=== PATIENT | male | born 1965 | race Caucasian/White ===

== ENCOUNTER 2018-02-16 21:21 | Emergency (ER) | payer MEDICARE ==
[2018-02-16 21:31] VITALS: RESP 18
[2018-02-16] MEDS ORDERED: LIDOCAINE 1% (PF) 10MG/ML VIAL SQ STA (23:06)
[2018-02-16] MEDS ORDERED: LIDOCAINE 1% INJ 10MG/ML (20 ML MDV) SQ STA (23:07)
--- NOTE | 2018-02-16 23:14 | ED ---
Skin/Abscess/FB HPI - General Chief complaint: Skin/Abscess/Foreign Body Stated complaint: Fish Hook in finger Time Seen by Provider: 02/16/18 22:42 Source: patient Mode of arrival: ambulatory Limitations: no limitations - History of Present Illness Initial comments: 's patient is 52-year-old man who presents to have a fishhook removed from his finger. Patient states that he was reaching in his tackle box couple of hours ago and had a fishhook penetrate his skin and then he was not able to take it out because the bentley. He does state that his last tetanus shot was approximately year ago. He denies any other complaints. MD complaint: foreign body Onset/Timin -: hour(s) Tetanus Up to Date: yes Location: R hand Severity: mild Quality: sharp Consistency: constant Improves with: none Worsens with: movement Context: none - Related Data Home Medications Medication Instructions Recorded Confirmed Amitriptyline HCl [Elavil] 30 mg PO HS 02/16/18 02/16/18 Gabapentin [Neurontin] 200 mg PO BID 02/16/18 02/16/18 [place]-3 Fatty Acids [[place]-3] 1,000 mg PO DAILY 02/16/18 02/16/18 Pantoprazole Sodium [Protonix] 40 mg PO DAILY 02/16/18 02/16/18 QUEtiapine FUMARATE [SEROquel XR] 100 mg PO HS 02/16/18 02/16/18 Allergies Allergy/AdvReac Type Severity Reaction Status Date / Time No Known Allergies Allergy Verified 02/16/18 22:52 Review of Systems ROS Statement: Those systems with pertinent positive or pertinent negative responses have been documented in the HPI. ROS Other: All systems not noted in ROS Statement are negative. Constitutional: Denies: fever Skin: Reports: as per HPI Neurological: Denies: weakness, numbness Hematological/Lymphatic: Denies: easy bleeding Past Medical History Past Medical History: No Reported History History of Any Multi-Drug Resistant Organisms: None Reported Past Surgical History: No Surgical Hx Reported Past Psychological History: No Psychological Hx Reported Smoking Status: Current every day smoker Past Alcohol Use History: Occasional Past Drug Use History: Marijuana General Exam Limitations: no limitations General appearance: alert Extremities exam: Present: other (Patient has a fishhook adjacent to the nail of the digit.) Neurological exam: Absent: motor sensory deficit Skin exam: Present: warm, dry, intact, normal color. Absent: rash Course Vital Signs 02/16/18 02/16/18 21:28 23:26 Temperature 98.4 F 97.9 F Pulse Rate 125 H 95 Respiratory 18 18 Rate Blood Pressure 168/96 149/100 O2 Sat by Pulse 97 97 Oximetry Medical Decision Making - Medical Decision Making I discussed with the patient indications, risks and benefits of foreign body removal and he did verbally agree. I cleansed the skin and infiltrated just under 1 mL of 1% lidocaine without epinephrine. I was unable to grasp the fishhook and back it out of the skin. Patient tolerated this well without complications. Discussed wound care. Discussed return parameters. Disposition Clinical Impression: Fish hook injury of finger Disposition: HOME SELF-CARE Condition: Good Instructions: Soft Tissue Foreign Body (ED) Is patient prescribed a controlled substance at d/c from ED?: No Referrals: Fabian Lyman MD [Primary Care Provider] - 1-2 days
[2018-02-16 23:27] VITALS: BP 149/100; PULSE 95; TEMP 97.9
== END 2018-02-16 23:27 | disposition home or self-care (01) ==
LOC: EC 21:21
DX: S60.551A Superficial foreign body of right hand, initial encounter (principal); F17.200 Nicotine dependence, unspecified, uncomplicated; Z88.8 Allergy status to other drugs, medicaments and biological substances; W45.8XXA Other foreign body or object entering through skin, initial encounter
CPT/HCPCS: 99283; J2001

== ENCOUNTER 2020-02-28 16:16 | Emergency (ER) | payer MEDICARE ==
[2020-02-28 16:22] VITALS: RESP 16
--- NOTE | 2020-02-28 17:32 | XR ---
Right foot HISTORY: Trauma and pain 3 views of the right foot Bone mineralization, joint spaces and alignment are maintained. There is soft tissue swelling present . IMPRESSION: No fracture or dislocation of the right foot.
--- NOTE | 2020-02-28 18:00 | XR ---
Right ankle HISTORY: Trauma and pain 3 views of the right ankle Bone mineralization, joint spaces and alignment are maintained. There is soft tissue swelling present . IMPRESSION: No fracture or dislocation.
--- NOTE | 2020-02-28 18:07 | XR ---
EXAMINATION TYPE: XR Hip RT and AP Pelvis DATE OF EXAM: 02/28/2020 COMPARISON: NONE HISTORY: Trauma and pain TECHNIQUE: A single AP view of the pelvis is obtained. Two views of the right hip are obtained. FINDINGS: There is no acute fracture/dislocation evident in the pelvis. The hip and sacroiliac join ts appear symmetric and unremarkable. The overlying soft tissue appears unremarkable. Two views of right hip show no acute fracture or dislocation. No focal lytic or sclerotic lesion see n in the proximal right femur. The overlying soft tissue is unremarkable. IMPRESSION: There is no acute fracture or dislocation in the pelvis or right hip.
--- NOTE | 2020-02-28 18:09 | XR ---
Lumbar spine HISTORY: Trauma and pain 3 views lumbar spine correlated prior exam 12/23/2009 There is no significant change. There is some loss of disc height at L5-S1 with associated vacuum phe nomenon which is progressed. Loss of disc height also present L4-5. IMPRESSION: No acute fracture or subluxation. Degenerative disc disease.
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
--- NOTE | 2020-02-28 18:20 | XR ---
Right shoulder HISTORY: Trauma and pain 3 views the right shoulder Bone mineralization, joint spaces and alignment are maintained. Right lung apex as visualized is norm al. IMPRESSION: No fracture or dislocation.
--- NOTE | 2020-02-28 18:21 | XR ---
Cervical spine HISTORY: Stiffness, pain, trauma 5 views of the cervical spine Patient is edentulous. Cervical vertebral bodies show preserved height, alignment, and bone mineraliz ation. Mild loss of disc height present at C4-5. No evident foraminal encroachment. C7-T1 is not seen . IMPRESSION: No fracture or subluxation within the limitations of the exam.
[2020-02-28] MEDS ORDERED: DIPH,PERTUS(ACELL)TETVAC-LF 0.5 ML VIAL IM ONE (18:33)
[2020-02-28] MEDS ORDERED: KETOROLAC 30 MG/ML 1 ML VIAL IM STA (18:53)
[2020-02-28 19:06] VITALS: BP 151/92; PULSE 68; TEMP 97.5
== END 2020-02-28 19:05 | disposition home or self-care (01) ==
LOC: EC 16:16
DX: S93.601A Unspecified sprain of right foot, initial encounter (principal); M25.511 Pain in right shoulder; F17.200 Nicotine dependence, unspecified, uncomplicated; I10 Essential (primary) hypertension; E78.5 Hyperlipidemia, unspecified; Z79.899 Other long term (current) drug therapy; V23.4XXA Motorcycle driver injured in collision with car, pick-up truck or van in traffic accident, initial encounter; Y92.488 Other paved roadways as the place of occurrence of the external cause; Y93.55 Activity, bike riding
CPT/HCPCS: 72050; 72100; 73502; 73030; 73610; 73630; 99284; 96372; 29515; J1885

== ENCOUNTER 2024-03-09 14:32 | Emergency (ER) | payer MEDICARE ==
[2024-03-09] MEDS: MORPHINE SULFATE 4 MG/ML SYRINGE IM STA (15:20)
[2024-03-09] MEDS: KETOROLAC 15 MG/ML 1 ML VIAL IM STA (15:20)
--- NOTE | 2024-03-09 15:55 | XR ---
Right knee HISTORY: Pain. COMPARISON: None. TECHNIQUE: 3 views right knee were obtained FINDINGS: There is a moderate joint effusion. There is no fracture, dislocation or focal intraosseous abnormality. IMPRESSION: Moderate joint effusion with no other significant abnormality seen.
--- NOTE | 2024-03-09 16:25 | US ---
EXAMINATION TYPE: US venous doppler duplex LE RT DATE OF EXAM: 03/09/2024 4:09 PM COMPARISON: NONE CLINICAL INDICATION: Male, 58 years old with history of post knee/leg swelling. eval for dvt; Edema SIDE PERFORMED: Right TECHNIQUE: The lower extremity deep venous system is examined utilizing real time linear array sonog seema with graded compression, doppler sonography and color-flow sonography. VESSELS IMAGED: Common Femoral Vein Deep Femoral Vein Greater Saphenous Vein * Femoral Vein Popliteal Vein Small Saphenous Vein * Proximal Calf Veins (* superficial vessels) The deep venous system of the right lower extremity from the common femoral vein to the proximal calf veins is patent and compressible with augmentable flow with normal waveforms. IMPRESSION: No evidence of right lower extremity DVT from the common femoral vein to the proximal calf veins
[2024-03-09 16:31] VITALS: RESP 18; TEMP 98.2
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
[2024-03-09] MEDS: ACET/COD 300 MG/30 MG STARTER PACK 6 TAB BTL PO STA (17:12)
[2024-03-09 17:24] VITALS: BP 138/87; PULSE 86
== END 2024-03-09 17:24 | disposition home or self-care (01) ==
LOC: EC 14:32
DX: S83.91XA Sprain of unspecified site of right knee, initial encounter (principal); F17.200 Nicotine dependence, unspecified, uncomplicated; X50.0XXA Overexertion from strenuous movement or load, initial encounter
CPT/HCPCS: 73562; 93971; 99284; 96372 ×2; L1830; J2270; J1885

== ENCOUNTER 2025-02-18 03:47 | Observation (INO) | payer MEDICARE ==
[2025-02-18] MEDS: HYDROcodone/APAP 5-325MG 1 EACH TAB PO STA (04:41)
[2025-02-18 04:56] LABS: Basophils # (A) 0.09 10*3/uL (0.00-0.10); Basophils % (A) 0.9 %; Eosinophils # (A) 0.05 10*3/uL (0.04-0.35); Eosinophils % (A) 0.5 %; HCT 36.1 % (39.6-50.0); HGB 12.8 g/dL (13.0-17.0); Lymphocytes # (A) 1.43 10*3/uL (0.90-5.00); Lymphocytes % (A) 13.8 %; MCH 36.9 pg (27.0-32.0); MCHC 35.5 g/dL (32.0-37.0); MCV 104.0 fL (80.0-97.0); Monocytes # (A) 0.84 10*3/uL (0.20-1.00); Monocytes % (A) 8.1 %; Neutrophils # (A) 7.93 10*3/uL (1.80-7.70); Neutrophils % (A) 76.4 %; Platelet Count 244 10*3/uL (140-440); RBC 3.47 10*6/uL (4.40-5.60); RDW 17.7 % (11.5-14.5); WBC 10.37 10*3/uL (4.50-10.00)
--- NOTE | 2025-02-18 05:06 | XR ---
EXAM: XR Chest, 2 Views CLINICAL HISTORY: ITS.REASON XR Reason: cough TECHNIQUE: Frontal and lateral views of the chest. COMPARISON: No relevant prior studies available. FINDINGS: Lungs: Unremarkable. No consolidation. Pleural space: Unremarkable. No pneumothorax. Heart: Unremarkable. No cardiomegaly. Mediastinum: Unremarkable. Normal mediastinal contour. Bones/joints: Unremarkable. No acute fracture. IMPRESSION: No acute cardiopulmonary abnormality.
[2025-02-18 05:12] LABS: ALT 14 U/L (4-49); AST 23 U/L (17-59); African American GFR (CKD) 51 (>60 ml/min/1.73 sqM); Albumin 4.2 g/dL (3.5-5.0); Alkaline Phosphatase 127 U/L (38-126); Anion Gap 14 mmol/L; Blood Urea Nitrogen 20 mg/dL (9-20); Calcium 9.5 mg/dL (8.4-10.2); Carbon Dioxide 24 mmol/L (22-30); Chloride 103 mmol/L (98-107); Glucose 137 mg/dL (74-99); Non-African American GFR(CKD) 44 (>60 ml/min/1.73 sqM); Potassium 4.1 mmol/L (3.5-5.1); Sodium 141 mmol/L (137-145); Total Protein 7.4 g/dL (6.3-8.2)
--- NOTE | 2025-02-18 06:53 | ED ---
General Adult HPI - General Chief complaint: Extremity Injury, Lower Stated complaint: Knee Pain, Anxiety Time Seen by Provider: 02/18/25 04:31 Source: patient Mode of arrival: EMS Limitations: no limitations - History of Present Illness Initial comments: Patient is a 59-year-old man with multiple complaints. He has been having bilateral knee and leg pains, left worse than right. The patient also has been having shaking/jerking movements that have been getting worse over the past few days. Patient also having some mild dyspnea/cough. When questioned of fevers patient states he had been feeling warm but no known fever. Occasional yellow sputum, cough usually nonproductive. Onset/Timin -: days(s) Location: left, right, lower extremity Radiation: non-radiation Quality: aching Consistency: constant Improves with: none Worsens with: movement Associated Symptoms: cough, other (Shaking/tremors) Treatments Prior to Arrival: none - Related Data Home Medications Medication Instructions Recorded Confirmed Pantoprazole Sodium [Protonix] 40 mg PO BID@0900,0 02/16/18 02/18/25 Albuterol Sulfate [Albuterol 2 puff INHALATION RT-Q6H PRN 05/04/23 02/18/25 Sulfate Hfa] Apixaban [Eliquis] 5 mg PO BID@09,209905/04/23 02/18/25 Atorvastatin [Lipitor] 20 mg PO HS@169905/04/23 02/18/25 Baclofen [Lioresal] 20 mg PO DAILY@89905/04/23 02/18/25 Budesonide-Formot 160-4.5 Mcg 2 puff INHALATION RT-BID 05/04/23 02/18/25 [Symbicort 160-4.5 Mcg Inhaler] Escitalopram Oxalate [Lexapro] 10 mg PO DAILY@89905/04/23 02/18/25 Gabapentin [Neurontin] 1,600 mg PO BID@0900,169905/04/23 02/18/25 Ibuprofen [Motrin] 800 mg PO TID 05/04/23 02/18/25 Losartan [Cozaar] 50 mg PO DAILY@0905/04/23 02/18/25 Montelukast [Singulair] 10 mg PO HS@169905/04/23 02/18/25 QUEtiapine [SEROquel] 200 mg PO BID@0900,1700 05/04/23 02/18/25 Bisoprolol-Hctz 10-6.25 mg [Ziac 1 tab PO DAILY@0900 02/18/25 02/18/25 10-6.25 MG] amLODIPine [Norvasc] 10 mg PO DAILY@0900 02/18/25 02/18/25 Allergies Allergy/AdvReac Type Severity Reaction Status Date / Time No Known Allergies Allergy Verified 02/18/25 11:20 Review of Systems ROS Statement: Those systems with pertinent positive or pertinent negative responses have been documented in the HPI. ROS Other: All systems not noted in ROS Statement are negative. Constitutional: Reports: fever (Low-grade). Denies: weakness Eyes: Denies: vision change Respiratory: Reports: cough, wheezes. Denies: hemoptysis Cardiovascular: Denies: chest pain, palpitations, edema, syncope Gastrointestinal: Denies: abdominal pain, nausea, vomiting, diarrhea Genitourinary: Denies: dysuria, hematuria Musculoskeletal: Reports: as per HPI, arthralgia. Denies: back pain Skin: Denies: rash Neurological: Denies: headache Psychiatric: Reports: anxiety Past Medical History Past Medical History: Asthma, GERD/Reflux, Hyperlipidemia, Hypertension History of Any Multi-Drug Resistant Organisms: None Reported Past Surgical History: Orthopedic Surgery Additional Past Surgical History / Comment(s): left knee meniscus surgery Past Anesthesia/Blood Transfusion Reactions: No Reported Reaction Past Psychological History: No Psychological Hx Reported Smoking Status: Current every day smoker Past Alcohol Use History: Occasional Past Drug Use History: Marijuana - Past Family History Father Family Medical History: CVA/TIA General Exam General appearance: alert, in no apparent distress Head exam: Present: atraumatic, normocephalic Eye exam: Present: normal appearance. Absent: scleral icterus, conjunctival injection ENT exam: Present: mucous membranes dry Neck exam: Present: normal inspection Respiratory exam: Present: respiratory distress (Mild tachypnea), wheezes. Absent: rales, rhonchi, stridor, accessory muscle use Cardiovascular Exam: Present: regular rate, normal rhythm, normal heart sounds. Absent: systolic murmur, diastolic murmur, rubs, gallop GI/Abdominal exam: Present: soft. Absent: distended, tenderness, guarding, rebound, rigid, mass Extremities exam: Present: normal inspection, tenderness, normal capillary refill, other (Bilateral knee effusion. No abnormal erythema or warmth.). Absent: full ROM, pedal edema, calf tenderness Back exam: Present: normal inspection. Absent: vertebral tenderness Neurological exam: Present: alert Psychiatric exam: Present: anxious Skin exam: Present: warm, dry, intact, normal color. Absent: rash Course Vital Signs 02/18/25 02/18/25 02/18/25 03:50 07:38 08:35 Temperature 100.1 F H 98.7 F Pulse Rate 69 75 72 Respiratory 24 20 Rate Blood Pressure 118/59 111/74 O2 Sat by Pulse 94 L 94 L Oximetry 02/18/25 02/18/25 02/18/25 08:43 09:42 12:10 Temperature 98.4 F Pulse Rate 76 85 80 Respiratory Rate Blood Pressure 120/78 O2 Sat by Pulse 93 L Oximetry 02/18/25 12:19 Temperature Pulse Rate 84 Respiratory Rate Blood Pressure O2 Sat by Pulse Oximetry EKG Findings - EKG Results: EKG: interpreted by RONNY, sinus rhythm (Rate 86 bpm), normal axis, normal QRS, normal ST/T, no acute changes Medical Decision Making - Medical Decision Making The patient had chest x-ray that I interpreted as negative for acute infiltrate, pneumothorax, congestive heart failure Was pt. sent in by a medical professional or institution (RADHA Oneal, NURSING CLINICAL DIRECTOR, urgent care, hospital, or retirement...) When possible be specific @ -[No] Did you speak to anyone other than the patient for history (EMS, parent, family, police, friend...)? What history was obtained from this source @ -[No] Did you review nursing and triage notes (agree or disagree)? Why? @ -[I reviewed and agree with nursing and triage notes] Were old charts reviewed (outside hosp., previous admission, EMS record, old EKG, old radiological studies, urgent care reports/EKG's, retirement records)? Report findings @ -[No old charts were reviewed] Differential Diagnosis (chest pain, altered mental status, abdominal pain women, abdominal pain men, vaginal bleeding, weakness, fever, dyspnea, syncope, headache, dizziness, GI bleed, back pain, seizure, CVA, palpatations, mental health, musculoskeletal)? @ -[Differential Weakness: Hypoglycemia, shock, sepsis, hyponatremia, anemia, infection, AK, ETOH, adverse medicine reaction, overdose, stroke, this is not meant to be an all-inclusive list. EKG interpreted by me (3pts min.). @ -[I interpreted as above] X-rays interpreted by me (1pt min.). @ -[I interpreted as above CT interpreted by me (1pt min.). @ -[None done] U/S interpreted by me (1pt. min.). @ -[None done] What testing was considered but not performed or refused? (CT, X-rays, U/S, labs)? Why? @ -[None] What meds were considered but not given or refused? Why? @ -[None] Did you discuss the management of the patient with other professionals (professionals i.e. , PA, NURSING CLINICAL DIRECTOR, lab, RT, psych nurse, social media editor, classroom technology coach, teacher, motorcycle police officer, counter caser)? Give summary @ -[No] Was smoking cessation discussed for >3mins.? @ -[No] Was critical care preformed (if so, how long)? @ -[No] Were there social determinants of health that impacted care today? How? (Homelessness, low income, unemployed, alcoholism, drug addiction, transporta tion, low edu. Level, literacy, decrease access to med. care, halfway, rehab)? @ -[No] Was there de-escalation of care discussed even if they declined (Discuss DNR or withdrawal of care, Hospice)? DNR status @ -[No] What co-morbidities impacted this encounter? (DM, HTN, Smoking, COPD, CAD, Cancer, CVA, ARF, Chemo, Hep., AIDS, mental health diagnosis, sleep apnea, morbid obesity)? @ -[None] Was patient admitted / discharged? Hospital course, mention meds given and route, prescriptions, significant lab abnormalities, going to OR and other pertinent info. @ -[Patient is a 59-year-old man here with a number of symptoms who is found to have moderate lactic acidosis. Patient also clinically with COPD exacerbation. the patient is admitted to have further IV fluid, COPD medication and reevaluation. Undiagnosed new problem with uncertain prognosis? @ -[No] Drug Therapy requiring intensive monitoring for toxicity (Heparin, Nitro, Insulin, Cardizem)? @ -[No] Were any procedures done? @ -[No] Diagnosis/symptom? @ -[Acute exacerbation of COPD acute lactic acidosis Bilateral knee pain due to osteoarthritis, acute on chronic Acute, or Chronic, or Acute on Chronic? @ -[Acute Uncomplicated (without systemic symptoms) or Complicated (systemic symptoms)? @ -[Uncomplicated Side effects of treatment? @ -[No] Exacerbation, Progression, or Severe Exacerbation? @ -[No] Poses a threat to life or bodily function? How? (Chest pain, USA, AK, pneumonia, PE, COPD, DKA, ARF, appy, cholecystitis, CVA, Diverticulitis, Homicidal, Suicidal, threat to staff... and all critical care pts) @ -[No] All treatments are based on ideal body weight as in ED triage - Lab Data Result diagrams: 02/18/25 04:09 02/18/25 04:09 Lab Results 02/18/25 02/18/25 02/18/25 Range/Units 04:09 04:09 05:11 WBC 10.37 H (4.50-10.00) 10*3/uL RBC 3.47 L (4.40-5.60) 10*6/uL Hgb 12.8 L (13.0-17.0) g/dL Hct 36.1 L (39.6-50.0) % MCV 104.0 H (80.0-97.0) fL MCH 36.9 H (27.0-32.0) pg MCHC 35.5 (32.0-37.0) g/dL Plt Count 244 (140-440) 10*3/uL MPV 10.4 (9.5-12.2) fL Immature Gran % (Auto) 0.3 % Neutrophils % 76.4 % Lymphocytes % 13.8 % Monocytes % 8.1 % Eosinophils % 0.5 % Basophils % 0.9 % Immature Gran # 0.03 (0.00-0.04) 10*3/uL Neutrophils # 7.93 H (1.80-7.70) 10*3/uL Lymphocytes # 1.43 (0.90-5.00) 10*3/uL Monocytes # 0.84 (0.20-1.00) 10*3/uL Eosinophils # 0.05 (0.04-0.35) 10*3/uL Basophils # 0.09 (0.00-0.10) 10*3/uL Sodium 141 (137-145) mmol/L Potassium 4.1 (3.5-5.1) mmol/L Chloride 103 (98-107) mmol/L Carbon Dioxide 24 (22-30) mmol/L Anion Gap 14 mmol/L BUN 20 (9-20) mg/dL Creatinine 1.69 H (0.66-1.25) mg/dL Est GFR (CKD-EPI)AfAm 51 (>60 ml/min/1.73 sqM) Est GFR (CKD-EPI)NonAf 44 (>60 ml/min/1.73 sqM) Glucose 137 H (74-99) mg/dL Lactic Ac Sepsis Rflx Plasma Lactic Acid Parminder 3.9 H* (0.7-2.0) mmol/L Calcium 9.5 (8.4-10.2) mg/dL Total Bilirubin 0.9 (0.2-1.3) mg/dL AST 23 (17-59) U/L ALT 14 (4-49) U/L Alkaline Phosphatase 127 H (38-126) U/L Troponin I (0.000-0.034) ng/mL Total Protein 7.4 (6.3-8.2) g/dL Albumin 4.2 (3.5-5.0) g/dL 02/18/25 02/18/25 Range/Units 05:11 06:01 WBC (4.50-10.00) 10*3/uL RBC (4.40-5.60) 10*6/uL Hgb (13.0-17.0) g/dL Hct (39.6-50.0) % MCV (80.0-97.0) fL MCH (27.0-32.0) pg MCHC (32.0-37.0) g/dL Plt Count (140-440) 10*3/uL MPV (9.5-12.2) fL Immature Gran % (Auto) % Neutrophils % % Lymphocytes % % Monocytes % % Eosinophils % % Basophils % % Immature Gran # (0.00-0.04) 10*3/uL Neutrophils # (1.80-7.70) 10*3/uL Lymphocytes # (0.90-5.00) 10*3/uL Monocytes # (0.20-1.00) 10*3/uL Eosinophils # (0.04-0.35) 10*3/uL Basophils # (0.00-0.10) 10*3/uL Sodium (137-145) mmol/L Potassium (3.5-5.1) mmol/L Chloride (98-107) mmol/L Carbon Dioxide (22-30) mmol/L Anion Gap mmol/L BUN (9-20) mg/dL Creatinine (0.66-1.25) mg/dL Est GFR (CKD-EPI)AfAm (>60 ml/min/1.73 sqM) Est GFR (CKD-EPI)NonAf (>60 ml/min/1.73 sqM) Glucose (74-99) mg/dL Lactic Ac Sepsis Rflx Y Plasma Lactic Acid Parminder (0.7-2.0) mmol/L Calcium (8.4-10.2) mg/dL Total Bilirubin (0.2-1.3) mg/dL AST (17-59) U/L ALT (4-49) U/L Alkaline Phosphatase (38-126) U/L Troponin I <0.012 (0.000-0.034) ng/mL Total Protein (6.3-8.2) g/dL Albumin (3.5-5.0) g/dL Disposition Clinical Impression: COPD exacerbation, Osteoarthritis, Lactic acidosis Disposition: ADMITTED IP TO THIS HOSP Condition: Fair Is patient prescribed a controlled substance at d/c from ED?: No
[2025-02-18] MEDS: SODIUM CHLORIDE 0.9% 1,000 ML IV ONE (06:54)
[2025-02-18] MEDS: predniSONE 20 MG TAB PO STA (06:56)
[2025-02-18] MEDS: AZITHROMYCIN 500 MG TAB PO STA (06:57)
[2025-02-18] MEDS ORDERED: NALOXONE 0.4 MG/ML 1 ML VIAL IVP PRN (07:01)
[2025-02-18] MEDS: MORPHINE SULFATE 4 MG/ML SYRINGE IV STA (07:24)
[2025-02-18 07:39] VITALS: RESP 20
[2025-02-18 08:12] LABS: VBG HCO3 26.0 mmol/L (24-28); VBG PCO2 51.0 mmHg (37-51); VBG PH 7.31 (7.31-7.41)
--- NOTE | 2025-02-18 08:27 | US ---
EXAMINATION TYPE: US venous doppler duplex LE LT DATE OF EXAM: 02/18/2025 7:54 AM COMPARISON: NONE CLINICAL INDICATION: Male, 59 years old with history of Pain, possible DVT; Pain. Hx DVT per patient. Pt is on eliquis. TECHNIQUE: The lower extremity deep venous system is examined utilizing real time linear array sonog seema with graded compression, color doppler sonography, and spectral doppler. SIDE PERFORMED: Left FINDINGS: VESSELS IMAGED: Common Femoral Vein Deep Femoral Vein Greater Saphenous Vein * Femoral Vein Popliteal Vein Small Saphenous Vein * Proximal Calf Veins (* superficial vessels) Left Leg: No evidence of DVT. IMPRESSION: No ultrasound evidence for deep venous thrombosis of the left lower extremity. [facility], , 02/18/2025 8:24 AM
--- NOTE | 2025-02-18 08:32 | P.HPIM ---
History of Present Illness H&P Date: 02/18/25 Chief Complaint: Knee pain with shortness of breath. The patient is a 59-year-old white male with known history of COPD still smoking cigarettes who complains of significant shortness of breath and knee pain. The patient has had knee pain for about 15 years. Previous orthopedic surgeon has supposedly been giving him intermittent intra-articular steroid injections. He states some difficulty with mobility. X-rays pending of the knee. Low-grade fever some cough productive of phlegm. Smoking cessation again discussed with the patient. Underlying past medical history of depression with hypertension. Review of Systems Constitutional: Reports fever, Denies chills Eyes: denies blurred vision, denies pain Ears, nose, mouth and throat: Denies headache, Denies sore throat Cardiovascular: Denies chest pain, Denies shortness of breath Respiratory: Reports as per HPI Gastrointestinal: Denies abdominal pain, Denies diarrhea, Denies nausea, Denies vomiting Musculoskeletal: Reports limitation of motion, Denies myalgias Musculoskeletal: right: knee pain, knee stiffness Neurological: Denies numbness, Denies weakness Past Medical History Past Medical History: Asthma, GERD/Reflux, Hyperlipidemia, Hypertension History of Any Multi-Drug Resistant Organisms: None Reported Past Surgical History: Orthopedic Surgery Additional Past Surgical History / Comment(s): left knee meniscus surgery Past Anesthesia/Blood Transfusion Reactions: No Reported Reaction Past Psychological History: No Psychological Hx Reported Smoking Status: Current every day smoker Past Alcohol Use History: Occasional Past Drug Use History: Marijuana - Past Family History Father Family Medical History: CVA/TIA Medications and Allergies Home Medications Medication Instructions Recorded Confirmed Type Pantoprazole Sodium [Protonix] 40 mg PO BID 02/16/18 05/04/23 History Albuterol Sulfate [Albuterol 2 puff PO RT-Q6H PRN 05/04/23 05/04/23 History Sulfate Hfa] Apixaban [Eliquis] 5 mg PO BID 05/04/23 05/04/23 History Atorvastatin [Lipitor] 20 mg PO HS 05/04/23 05/04/23 History Baclofen [Lioresal] 20 mg PO HS 05/04/23 05/04/23 History Budesonide-Formot 160-4.5 Mcg 2 puff INHALATION BID 05/04/23 05/04/23 History [Symbicort 160-4.5 Mcg Inhaler] Escitalopram Oxalate [Lexapro] 10 mg PO HS 05/04/23 05/04/23 History Gabapentin [Neurontin] 1,600 mg PO BID 05/04/23 05/04/23 History Ibuprofen [Motrin] 800 mg PO TID 05/04/23 05/04/23 History Losartan [Cozaar] 50 mg PO HS 05/04/23 05/04/23 History Montelukast [Singulair] 10 mg PO HS 05/04/23 05/04/23 History QUEtiapine [SEROquel] 200 mg PO BID 05/04/23 05/04/23 History Nicotine 21Mg/24Hr Patch [Habitrol] 1 patch TRANSDERM DAILY #30 patch 05/09/23 Rx Sulfamethox-Tmp 800-160Mg [Bactrim 1 tab PO Q12HR #20 tab 05/09/23 Rx DS 800-160 mg] amLODIPine [Norvasc] 10 mg PO DAILY #30 tab 05/09/23 Rx Allergies Allergy/AdvReac Type Severity Reaction Status Date / Time No Known Allergies Allergy Verified 09/27/24 20:27 Physical Exam Vitals: Vital Signs Temp Pulse Resp BP Pulse Ox 02/18/25 07:38 98.7 F 75 20 111/74 94 L 02/18/25 03:50 100.1 F H 69 24 118/59 94 L Intake and Output 02/17/25 02/18/25 02/18/25 22:59 06:59 14:59 Other: Weight 77.111 kg Results CBC & Chem 7: 02/18/25 04:09 02/18/25 04:09 Labs: Abnormal Lab Results - Last 24 Hours (Table) 02/18/25 02/18/25 02/18/25 Range/Units 04:09 04:09 05:11 WBC 10.37 H (4.50-10.00) 10*3/uL RBC 3.47 L (4.40-5.60) 10*6/uL Hgb 12.8 L (13.0-17.0) g/dL Hct 36.1 L (39.6-50.0) % MCV 104.0 H (80.0-97.0) fL MCH 36.9 H (27.0-32.0) pg Neutrophils # 7.93 H (1.80-7.70) 10*3/uL Creatinine 1.69 H (0.66-1.25) mg/dL Glucose 137 H (74-99) mg/dL Plasma Lactic Acid Parminder 3.9 H* (0.7-2.0) mmol/L Alkaline Phosphatase 127 H (38-126) U/L Assessment and Plan (1) COPD exacerbation Current Visit: Yes Status: Acute Code(s): J44.1 - CHRONIC OBSTRUCTIVE PULMONARY DISEASE W (ACUTE) EXACERBATION SNOMED Code(s): 133221773 (2) Bipolar depression Current Visit: No Status: Acute Code(s): F31.9 - BIPOLAR DISORDER, UNSPECIFIED SNOMED Code(s): 948315892 (3) Hypertension Current Visit: No Status: Acute Code(s): I10 - ESSENTIAL (PRIMARY) HYPERTENSION SNOMED Code(s): 72921832 Plan: Reconcile home medications. Empiric treatment for COPD exacerbation. Await right knee x-ray. Check CBC and CMP in AM. The patient is otherwise full code Time with Patient: Greater than 30
[2025-02-18] MEDS: IPRATROPIUM-ALBUTEROL 3 ML NEB INHALATION SCH (08:33)
[2025-02-18] MEDS: ALBUTEROL NEBULIZED 2.5 MG/3 ML INHALATION STA (08:33)
[2025-02-18] MEDS: NICOTINE 21MG/24HR PATCH TRANSDERM SCH (09:06)
[2025-02-18 09:43] VITALS: BP 120/78; TEMP 98.4
--- NOTE | 2025-02-18 09:52 | XR ---
EXAMINATION TYPE: XR knee complete LT DATE OF EXAM: 02/18/2025 9:48 AM INDICATION: Patient age:Male; 59 years old; Reason for study: knee pain; PHH. pain COMPARISON: None. TECHNIQUE: The Left knee(s) was examined in Frontal, lateral and oblique projections. FINDINGS: No acute fracture or dislocation. No joint space narrowing. Small to moderate sized supra patellar joint effusion. No soft tissue swelling. IMPRESSION: 1. No acute osseous pathology. 2. Small to moderate sized suprapatellar joint effusion. [facility], , 02/18/2025 9:49 AM
[2025-02-18 10:32] LABS: Bilirubin,Urine Negative (Negative); Blood,Urine Negative (Negative); Color,Urine Colorless; Glucose,Urine (UA) Negative (Negative); Ketones,Urine Negative (Negative); Leukocyte Esterase,Urine Negative (Negative); Nitrite,Urine Negative (Negative); PH, Urine 6.5 (5.0-8.0); Protein,Urine Negative (Negative); Specific Gravity,Urine 1.005 (1.001-1.035); Urobilinogen,Urine <2.0 mg/dL (<2.0)
[2025-02-18 12:20] VITALS: PULSE 84
[2025-02-18] MEDS ORDERED: ALBUTEROL NEBULIZED 2.5 MG/3 ML INHALATION PRN (18:26)
[2025-02-18] MEDS ORDERED: HYDROcodone/APAP 5-325MG 1 EACH TAB PO PRN (18:28)
[2025-02-18] MEDS ORDERED: SYMBICORT 160-4.5 MCG INHALER INHALATION SCH (20:00)
[2025-02-18] MEDS ORDERED: APIXABAN 5 MG TAB PO SCH (21:00)
[2025-02-18] MEDS ORDERED: IBUPROFEN 800 MG TAB PO SCH (22:00)
[2025-02-19] MEDS ORDERED: GABAPENTIN 400 MG CAP PO SCH (09:00)
[2025-02-19] MEDS ORDERED: ESCITALOPRAM 10 MG TAB PO SCH (09:00)
[2025-02-19] MEDS ORDERED: BACLOFEN 10 MG TAB PO SCH (09:00)
[2025-02-19] MEDS ORDERED: AZITHROMYCIN 500 MG TAB PO SCH (09:00)
[2025-02-19] MEDS ORDERED: predniSONE 20 MG TAB PO SCH (09:00)
[2025-02-19] MEDS ORDERED: amLODIPine 10 MG TAB PO SCH (09:00)
[2025-02-19] MEDS ORDERED: BISOPROLOL-HCTZ 10-6.25 MG 1 EACH TAB PO SCH (09:00)
[2025-02-19] MEDS ORDERED: LOSARTAN 50 MG TAB PO SCH (09:00)
[2025-02-19] MEDS ORDERED: PANTOPRAZOLE 40 MG TABLET PO SCH (09:00)
[2025-02-19] MEDS ORDERED: MONTELUKAST 10 MG TAB PO SCH (17:00)
[2025-02-19] MEDS ORDERED: ATORVASTATIN 20 MG TAB PO SCH (17:00)
--- NOTE | 2025-02-27 21:11 | P.DS ---
Providers Date of admission: 02/18/25 07:01 Attending physician: Fabian Lyman Primary care physician: Fabian Lyman - Discharge Diagnosis(es) (1) COPD exacerbation Status: Acute (2) Bipolar depression Status: Acute (3) Hypertension Status: Acute Hospital Course: Chief complaint Significant hip and back pain with bilateral knee and leg pain, accompanied by shaking and jerking movements. History of present illness Fredi Clark, 59-year-old male, reported significant hip and back pain prior to admission. Also reported bilateral knee and leg pain, as well as shaking and jerking movements. Complained about delay in medication reconciliation. No other symptoms or history reported. Review of systems is otherwise normal except as noted above. Past medical history History of hip and back pain. Bilateral knee and leg pain. Suspected osteoarthritis. Element of COPD. Physical exam - LUNGS: Mild respiratory distress, diminished breath sounds at lung bases. - ABDOMEN: Soft and nontender abdomen. - MUSCULOSKELETAL: Bilateral knee and leg pain, tremors and involuntary movements. Assessment - Lower extremity pain likely due to osteoarthritis - Suspected element of COPD Plan - Follow up only as needed for lower extremity pain and suspected osteoarthritis and COPD. Visit diagnoses suggestions (2) - Dorsalgia, unspecified [M54.9] - Pain in leg, unspecified [M79.606] Patient Condition at Discharge: Fair Plan - Discharge Summary New Discharge Prescriptions: No Action Pantoprazole Sodium [Protonix] 40 mg PO BID@0900,1700 Gabapentin [Neurontin] 1,600 mg PO BID@0900,1700 Apixaban [Eliquis] 5 mg PO BID@0900,2100 Escitalopram Oxalate [Lexapro] 10 mg PO DAILY@0900 Montelukast [Singulair] 10 mg PO HS@1700 Budesonide-Formot 160-4.5 Mcg [Symbicort 160-4.5 Mcg Inhaler] 2 puff INHALATION RT-BID Bisoprolol-Hctz 10-6.25 mg [Ziac 10-6.25 MG] 1 tab PO DAILY@0900 Ibuprofen [Motrin] 800 mg PO TID QUEtiapine [SEROquel] 200 mg PO BID@0900,1700 Baclofen [Lioresal] 20 mg PO DAILY@0900 Atorvastatin [Lipitor] 20 mg PO HS@1700 Losartan [Cozaar] 50 mg PO DAILY@0900 Albuterol Sulfate [Albuterol Sulfate Hfa] 2 puff INHALATION RT-Q6H PRN PRN Reason: Shortness Of Breath amLODIPine [Norvasc] 10 mg PO DAILY@09 Discharge Medication List Pantoprazole Sodium [Protonix] 40 mg PO BID@0900,1700 02/16/18 [History] Albuterol Sulfate [Albuterol Sulfate Hfa] 2 puff INHALATION RT-Q6H PRN 05/04/23 [History] Apixaban [Eliquis] 5 mg PO BID@0900,209905/04/23 [History] Atorvastatin [Lipitor] 20 mg PO HS@169905/04/23 [History] Baclofen [Lioresal] 20 mg PO DAILY@89905/04/23 [History] Budesonide-Formot 160-4.5 Mcg [Symbicort 160-4.5 Mcg Inhaler] 2 puff INHALATION RT-BID 05/04/23 [History] Escitalopram Oxalate [Lexapro] 10 mg PO DAILY@89905/04/23 [History] Gabapentin [Neurontin] 1,600 mg PO BID@09,169905/04/23 [History] Ibuprofen [Motrin] 800 mg PO TID 05/04/23 [History] Losartan [Cozaar] 50 mg PO DAILY@89905/04/23 [History] Montelukast [Singulair] 10 mg PO HS@169905/04/23 [History] QUEtiapine [SEROquel] 200 mg PO BID@09,169905/04/23 [History] Bisoprolol-Hctz 10-6.25 mg [Ziac 10-6.25 MG] 1 tab PO DAILY@89902/18/25 [History] amLODIPine [Norvasc] 10 mg PO DAILY@89902/18/25 [History] Follow up Appointment(s)/Referral(s): Fabian Lyman MD [Primary Care Provider] - 1-2 days Discharge Disposition: LEFT AGAINST MEDICAL ADVICE
== END 2025-02-18 20:03 | disposition left against medical advice (07) ==
LOC: EC 03:47 → 6NMEDSUR 07:01
PROVIDERS: ADMIT Family Medicine; ATTEND Family Medicine
DX: J44.1 Chronic obstructive pulmonary disease with (acute) exacerbation (principal); E87.20 Acidosis, unspecified; F31.30 Bipolar disorder, current episode depressed, mild or moderate severity, unspecified; I10 Essential (primary) hypertension; M25.562 Pain in left knee; M25.561 Pain in right knee; R25.1 Tremor, unspecified; Z53.29 Procedure and treatment not carried out because of patient's decision for other reasons; M25.559 Pain in unspecified hip; M79.606 Pain in leg, unspecified; M54.9 Dorsalgia, unspecified; F41.9 Anxiety disorder, unspecified; F17.210 Nicotine dependence, cigarettes, uncomplicated; Z74.09 Other reduced mobility; Z79.01 Long term (current) use of anticoagulants; Z79.51 Long term (current) use of inhaled steroids; Z79.1 Long term (current) use of non-steroidal anti-inflammatories (NSAID); Z79.899 Other long term (current) drug therapy
CPT/HCPCS: 96361; 96374; 99285; 36415; 94640 ×2; 93005; 80053; 82803; 83605; 84484; 85025; 81003; 87040; 73562; 71046; 93971; G0378; S4990; J2270; J7512